=== PATIENT | female | born 1990 | race Caucasian/White ===

== ENCOUNTER → 2017-12-31 | Outpatient (CLI) | payer MEDICAID | LOC: HPND 11:13 | PROVIDERS: ATTEND Obstetrics & Gynecology | DX: O28.3 Abnormal ultrasonic finding on antenatal screening of mother (principal); O99.331 Smoking (tobacco) complicating pregnancy, first trimester | CPT/HCPCS: 76813 ==

== ENCOUNTER → 2018-01-28 | Outpatient (CLI) | payer MEDICAID | LOC: HPND 08:30 | PROVIDERS: ATTEND Obstetrics & Gynecology | DX: O28.3 Abnormal ultrasonic finding on antenatal screening of mother (principal); O09.292 Supervision of pregnancy with other poor reproductive or obstetric history, second trimester | CPT/HCPCS: 76811 ==

== ENCOUNTER → 2018-02-25 | Outpatient (CLI) | payer MEDICAID | LOC: HPND 12:55 | PROVIDERS: ATTEND Obstetrics & Gynecology | DX: O28.3 Abnormal ultrasonic finding on antenatal screening of mother (principal); O99.332 Smoking (tobacco) complicating pregnancy, second trimester; O09.292 Supervision of pregnancy with other poor reproductive or obstetric history, second trimester | CPT/HCPCS: 76816; 76825; 76827; 93325 ==

== ENCOUNTER 2018-06-23 07:43 | Inpatient (IN) ==
--- NOTE | 2018-06-23 08:32 | ED ---
History of Present Illness Primary Care Physician: No Primary Care Physician [facility] History of Present Illness: at [id number] presents complaining of cxns every 6 minutes waking her up from sleep, and now cxns/pressure every minute. She denies any LOF, VB. +FM Ob history this : current smoker - 1/2 ppd elevated GCT, normal GTT obhx: x 2 - most recent 2009 - biggest baby 6lb4 - 1st baby went to NICU for SGA, RDS medhx: none surghx: none meds: PNV all: none Review of Systems All other systems reviewed negative except as stated in HPI PMFSH - History History Provided By: Patient - Tobacco History Second Hand Smoke Exposure: No Smoking Status: Never smoker - Travel History Recent Travel in the [place] Within the Last 8 Weeks: No Recent Travel Out of the Country Within the Last 8 Weeks: No Medications and Allergies Allergies Allergy/AdvReac Type Severity Reaction Status Date / Time latex AdvReac Rash, Verified 06/23/18 08:05 Localized Home Medications Medication Instructions Recorded Confirmed Type PNV cmb#95-ferrous fumarate-FA 1 tab PO DAILY 06/23/18 06/23/18 History [] Exam Vital signs: Vital Signs 06/23/18 07:56 06/23/18 08:10 Temperature 97.7 F Pulse Rate 64 Respiratory Rate 20 Blood Pressure 117/72 Intake & Output 06/22/18 06/23/18 06/23/18 18:59 06:59 18:59 Weight 73.028 kg Narrative: GENERAL: Well-nourished, well-developed patient. SKIN: Warm and dry. HEAD: Normocephalic and atraumatic. EYES: No scleral icterus. No injection or drainage. ENT: No nasal drainage noted. Mucous membranes pink. Airway patent. NECK: Supple, trachea midline. No JVD. CARDIOVASCULAR: Regular rate and rhythm without murmurs, gallops, or rubs. RESPIRATORY: Breath sounds equal bilaterally. No accessory muscle use. ABDOMEN/GI: Abdomen soft, non-tender, bowel sounds present, no rebound, no guarding Gravid to 39 weeks size Fundal Height: 39 SVE: 3/60/-2, posterior GENITOURINARY: External Genitalia: intact and normal in appearance FHT's: Cat 1 tracing, no decels, +accels no cxns on toco EXTREMITIES: No cyanosis or edema. BACK: Nontender without obvious deformity. No CVA tenderness. NEUROLOGICAL: Awake and alert. Motor and sensory grossly within normal limits. Five out of 5 muscle strength in all muscle groups. Normal speech. Assessment and Plan - Diagnosis (1) 38 weeks gestation of Code(s): Z3A.38 - 38 weeks gestation of Status: Acute Plan: at [id number] presents complaining of cxns. - Pt made cervical change from 3/60/-2, posterior --> 4/70/-2, midposition - Pt in labor pain, irregular cxns monitor - Admit for early labor - labs reviewed - GBS negative - f/u admission labs Discharge Plan - Discharge Disposition Patient Disposition: 30 Still Patient - Physicians Team ED Provider: Abe Newby Primary Care Provider: Primary Care Pamela Jordan - Rxs /Orders / Referrals /Forms Prescriptions: No Action PNV cmb#95-ferrous fumarate-FA [] 28 mg iron- 800 mcg Tablet 1 tab PO DAILY - Discharge Instructions Print Language: Palauan
[2018-06-23] MEDS ORDERED: fentaNYL Citrate Inj 100 MCG/2 ML Ampul IV.PUSH PRN ×2 (09:22)
[2018-06-23] MEDS ORDERED: Naloxone Inj 0.4 MG/ML Vial IV.PUSH PRN (09:22)
[2018-06-23] MEDS ORDERED: Sodium Chlor 0.9% Inj 500 ML IV.SIG PRN (09:22)
[2018-06-23] MEDS ORDERED: Sod Chloride 0.9% Inj 1,000 ML IV.CONT PRN (09:22)
[2018-06-23] MEDS ORDERED: Oxytocin 30 Units/500ml Premix 30 UNITS/500 ML BAG IV.SIG ONE (09:22)
[2018-06-23] MEDS ORDERED: Citric Acid/Sodium Citrate Liq 30 ML UDC PO SCH (09:30)
[2018-06-23] MEDS ORDERED: Sodium Chloride 0.9% 2 ML Flush PRN IV.FLUSH (09:44)
[2018-06-23 10:23] LABS: Baso % (Auto) 0.3 % (0.0-2.0); Eos # (Auto) 0.1 th/mm3 (0.0-0.4); Eos % (Auto) 1.1 % (0.0-4.0); Hemoglobin 13.1 gm/dL (11.6-15.3); Lymph % (Auto) 26.7 % (9.0-44.0); Mean Corpuscular HGB Conc 35.4 % (32.0-36.0); Mean Corpuscular Hemoglobin 32.3 pg (27.0-34.0); Mean Corpuscular Volume 91.2 fL (80.0-100.0); Mean Platelet Volume 8.9 fL (7.0-11.0); Mono # (Auto) 0.6 th/mm3 (0.0-0.9); Mono % (Auto) 5.7 % (0.0-8.0); Neut # (Auto) 7.3 th/mm3 (1.8-7.7); Neut % (Auto) 66.2 % (16.0-70.0); Platelet Count 192 th/mm3 (150-450); Red Blood Count 4.06 mil/mm3 (4.00-5.30); Red Cell Distribution Width 13.7 % (11.6-17.2); White Blood Count 11.1 th/mm3 (4.0-11.0)
--- NOTE | 2018-06-23 10:24 | P.OBGPN ---
History of Present Illness Primary Care Physician: No Primary Care Physician [facility] History of Present Illness: at [id number] presents complaining of cxns every 6 minutes waking her up from sleep, and now cxns/pressure every minute. She denies any LOF, VB. +FM Ob history this : current smoker - 1/2 ppd elevated GCT, normal GTT obhx: x 2 - most recent 2009 - biggest baby 6lb4 - 1st baby went to NICU for SGA, RDS medhx: none surghx: none meds: PNV all: none Review of Systems All other systems reviewed negative except as stated in HPI PMFSH - History History Provided By: Patient - Tobacco History Second Hand Smoke Exposure: No Smoking Status: Never smoker - Travel History Recent Travel in the [place] Within the Last 8 Weeks: No Recent Travel Out of the Country Within the Last 8 Weeks: No Medications and Allergies Allergies Allergy/AdvReac Type Severity Reaction Status Date / Time latex AdvReac Rash, Verified 06/23/18 08:05 Localized Home Medications Medication Instructions Recorded Confirmed Type PNV cmb#95-ferrous fumarate-FA 1 tab PO DAILY 06/23/18 06/23/18 History [] Exam Vital signs: Vital Signs 06/23/18 07:56 06/23/18 08:10 Temperature 97.7 F Pulse Rate 64 Respiratory Rate 20 Blood Pressure 117/72 Intake & Output 06/22/18 06/23/18 06/23/18 18:59 06:59 18:59 Weight 73.028 kg Narrative: GENERAL: Well-nourished, well-developed patient. SKIN: Warm and dry. HEAD: Normocephalic and atraumatic. EYES: No scleral icterus. No injection or drainage. ENT: No nasal drainage noted. Mucous membranes pink. Airway patent. NECK: Supple, trachea midline. No JVD. CARDIOVASCULAR: Regular rate and rhythm without murmurs, gallops, or rubs. RESPIRATORY: Breath sounds equal bilaterally. No accessory muscle use. ABDOMEN/GI: Abdomen soft, non-tender, bowel sounds present, no rebound, no guarding Gravid to 39 weeks size Fundal Height: 39 SVE: 3/60/-2, posterior GENITOURINARY: External Genitalia: intact and normal in appearance FHT's: Cat 1 tracing, no decels, +accels no cxns on toco EXTREMITIES: No cyanosis or edema. BACK: Nontender without obvious deformity. No CVA tenderness. NEUROLOGICAL: Awake and alert. Motor and sensory grossly within normal limits. Five out of 5 muscle strength in all muscle groups. Normal speech. Assessment and Plan - Diagnosis (1) 38 weeks gestation of Code(s): Z3A.38 - 38 weeks gestation of Status: Acute Plan: at [id number] presents complaining of cxns. - Pt made cervical change from 3/60/-2, posterior --> 4/70/-2, midposition - Pt in labor pain, irregular cxns monitor - Admit for early labor - labs reviewed - GBS negative - f/u admission labs
[2018-06-23 10:31] LABS: Bacteria,Urine Rare /hpf; Bilirubin,Urine Negative (Negative); Clarity,Urine Hazy (Clear); Color,Urine Yellow (Yellw/Straw); Glucose,Urine (UA) Negative (Negative); Leukocyte Esterase,Urine Negative (Negative); Mucus,Urine Few /lpf (Occasional); Nitrite,Urine Negative (Negative); Specific Gravity,Urine 1.021 (1.002-1.035); Squamous Epithelial Cell,Urine 4 /hpf (0-5)
[2018-06-23 10:37] LABS: Amphetamine Urine With Conf Neg (Neg); Benzodiazepine Urine With Conf Neg (Neg)
--- NOTE | 2018-06-23 11:07 | P.PN ---
Subjective Interval history: The patient is a 28 year-old who presented at 38.4 in early labor with documented cervical change. We discussed the goal of a healthy and mother and goal of a . The patient agrees to a C/S if medically indicated. All of the patients questions were answered, FHR reassuring. Will manage expectantly for now, augment if needed. Physical Exam Vital signs: Vital Signs 06/23/18 07:56 06/23/18 08:10 06/23/18 08:15 Temperature 97.7 F Pulse Rate 64 69 Respiratory Rate 20 Blood Pressure 117/72 06/23/18 10:10 Temperature Pulse Rate 82 Respiratory Rate Blood Pressure 119/73 Intake & Output 06/22/18 06/23/18 06/23/18 18:59 06:59 18:59 Weight 73.028 kg Results - Labs CBC & Chem 7: 06/23/18 09:40 Laboratory Results - last 24 hr 06/23/18 06/23/18 06/23/18 09:30 09:30 09:30 WBC RBC Hgb Hct MCV MCH MCHC RDW Plt Count MPV Neut % (Auto) Lymph % (Auto) [place] % (Auto) Eos % (Auto) Baso % (Auto) Neut # (Auto) Lymph # (Auto) [place] # (Auto) Eos # (Auto) Baso # (Auto) WBC Differential Differential Comment Urine Color Yellow Urine Clarity Hazy H Urine pH 6.0 Ur Specific [place] 1.021 Urine Protein Negative Urine Glucose (UA) Negative Urine Ketones Negative Urine Occult Blood Negative Urine Nitrate Negative Urine Bilirubin Negative Urine Urobilinogen Less than 2 Ur Leukocyte Esterase Negative Urine RBC Less than 1 Urine WBC 2 Ur Squamous Epith Cells 4 Urine Bacteria Rare H Urine Mucus Few H Micro UA Comment Culture not ind Ur Microscopic Review Not Reportable Urine Culture Comments Culture not ind Urine Opiates Screen Cancelled Neg Ur Barbiturates Screen Cancelled Neg Ur Amphetamine Screen Neg Ur Amphetamines Screen Cancelled U Benzodiazepines Scrn Cancelled Neg Urine Cocaine Screen Cancelled Neg U Cannabinoids Screen Cancelled Neg Blood Type Blood Type Recheck 06/23/18 06/23/18 09:40 09:40 WBC 11.1 H RBC 4.06 Hgb 13.1 Hct 37.0 MCV 91.2 MCH 32.3 MCHC 35.4 RDW 13.7 Plt Count 192 MPV 8.9 Neut % (Auto) 66.2 Lymph % (Auto) 26.7 Williams % (Auto) 5.7 Eos % (Auto) 1.1 Baso % (Auto) 0.3 Neut # (Auto) 7.3 Lymph # (Auto) 3.0 [place] # (Auto) 0.6 Eos # (Auto) 0.1 Baso # (Auto) 0.0 WBC Differential . Differential Comment Auto diff final Urine Color Urine Clarity Urine pH Ur Specific [place] Urine Protein Urine Glucose (UA) Urine Ketones Urine Occult Blood Urine Nitrate Urine Bilirubin Urine Urobilinogen Ur Leukocyte Esterase Urine RBC Urine WBC Ur Squamous Epith Cells Urine Bacteria Urine Mucus Micro UA Comment Ur Microscopic Review Urine Culture Comments Urine Opiates Screen Ur Barbiturates Screen Ur Amphetamine Screen Ur Amphetamines Screen U Benzodiazepines Scrn Urine Cocaine Screen U Cannabinoids Screen Blood Type O Positive Blood Type Recheck Required
[2018-06-23] MEDS ORDERED: Oxytocin 30 Units/500ml Premix 30 UNITS/500 ML BAG IV.SIG PRN (16:42)
[2018-06-23] MEDS: Sodium Chloride 0.9% 2 ML Flush BID IV.FLUSH SCH (20:21)
[2018-06-23] MEDS ORDERED: fentaNYL 2MCG-Bupiv 0.125% Epi 150 ML EPIDURAL ONE (20:35)
[2018-06-23] MEDS ORDERED: Lidocaine 2%/Epinephrine 1:200,000 PF Inj 20 ML Vial ONE (20:41)
[2018-06-23] MEDS ORDERED: fentaNYL Citrate Inj 100 MCG/2 ML Ampul EPIDURAL ONE (21:35)
[2018-06-23] MEDS ORDERED: fentaNYL 2MCG-Bupiv 0.125% Epi 150 ML EPIDURAL PRN (22:00)
--- NOTE | 2018-06-23 23:18 | P.PN ---
Subjective Interval history: OBHG Asked by RN to place IUPC and ROM of forebag. Patient previously SROM during attending examination. Attempted earlier, but fetus intolerant of prolonged positioning on back and low maternal BP, so ephedra given, oxygen administered, and oxytocin discontinued. Currently with reassuring heart tones. AROM of forebag with clear fluid, consented for placement of IUPC and FSE. IUPC and FSE placed without difficulty and patient tolerated well. Will restart oxytocin augmentation. Physical Exam Vital signs: Vital Signs 06/23/18 07:56 06/23/18 08:10 06/23/18 08:15 Temperature 97.7 F Pulse Rate 64 69 Respiratory Rate 20 Blood Pressure 117/72 06/23/18 10:10 06/23/18 16:18 06/23/18 16:19 Temperature 97.8 F Pulse Rate 82 63 Respiratory Rate 17 Blood Pressure 119/73 113/69 06/23/18 17:38 06/23/18 18:00 06/23/18 18:30 Temperature Pulse Rate 69 75 77 Respiratory Rate Blood Pressure 113/65 108/71 108/53 L 06/23/18 18:45 06/23/18 19:10 06/23/18 19:30 Temperature 97.9 F Pulse Rate 81 93 H Respiratory Rate 9 L Blood Pressure 104/92 H 108/71 06/23/18 20:32 06/23/18 20:45 06/23/18 20:50 Temperature 98.0 F Pulse Rate 75 56 L 68 Respiratory Rate 16 Blood Pressure 114/65 118/80 116/63 06/23/18 20:55 06/23/18 21:00 06/23/18 21:05 Temperature Pulse Rate 65 73 72 Respiratory Rate Blood Pressure 107/60 106/59 L 103/64 06/23/18 21:20 06/23/18 21:25 06/23/18 21:30 Temperature Pulse Rate 84 66 66 Respiratory Rate Blood Pressure 107/77 06/23/18 21:35 06/23/18 21:40 06/23/18 21:45 Temperature Pulse Rate 65 62 60 Respiratory Rate Blood Pressure 88/43 L 81/43 L 101/57 L 06/23/18 21:55 06/23/18 22:00 06/23/18 22:10 Temperature Pulse Rate 65 68 69 Respiratory Rate Blood Pressure 93/40 L 06/23/18 22:15 06/23/18 22:19 06/23/18 22:20 Temperature 97.6 F Pulse Rate 68 60 Respiratory Rate 18 Blood Pressure 87/49 L 06/23/18 22:25 06/23/18 22:30 06/23/18 22:32 Temperature Pulse Rate 55 L 56 L 50 L Respiratory Rate Blood Pressure 98/44 L 98/55 L 06/23/18 22:35 06/23/18 22:36 06/23/18 22:40 Temperature Pulse Rate 54 L 53 L 60 Respiratory Rate Blood Pressure 104/57 L 06/23/18 22:45 06/23/18 22:50 06/23/18 22:55 Temperature Pulse Rate 69 56 L 58 L Respiratory Rate Blood Pressure 105/56 L 06/23/18 23:00 06/23/18 23:05 06/23/18 23:10 Temperature Pulse Rate 57 L 66 65 Respiratory Rate Blood Pressure 106/55 L Intake & Output 06/23/18 06/23/18 06/24/18 06:59 18:59 06:59 Intake Total 1000 / 1000 Balance 1000 / 1000 Weight 73.457 kg Intake: IV 1000 / 1000 LR 1000 mL Inj 1,000 ML @ 125 1000 / 1000 mls/hr IV.CONT .Q8H [facility] Rx#: [id number] Results - Labs CBC & Chem 7: 06/23/18 09:40 Laboratory Results - last 24 hr 06/23/18 06/23/18 06/23/18 09:30 09:30 09:30 WBC RBC Hgb Hct MCV MCH MCHC RDW Plt Count MPV Neut % (Auto) Lymph % (Auto) [place] % (Auto) Eos % (Auto) Baso % (Auto) Neut # (Auto) Lymph # (Auto) [place] # (Auto) Eos # (Auto) Baso # (Auto) WBC Differential Differential Comment Urine Color Yellow Urine Clarity Hazy H Urine pH 6.0 Ur Specific [place] 1.021 Urine Protein Negative Urine Glucose (UA) Negative Urine Ketones Negative Urine Occult Blood Negative Urine Nitrate Negative Urine Bilirubin Negative Urine Urobilinogen Less than 2 Ur Leukocyte Esterase Negative Urine RBC Less than 1 Urine WBC 2 Ur Squamous Epith Cells 4 Urine Bacteria Rare H Urine Mucus Few H Micro UA Comment Culture not ind Ur Microscopic Review Not Reportable Urine Culture Comments Culture not ind Urine Opiates Screen Cancelled Neg Ur Barbiturates Screen Cancelled Neg Ur Amphetamine Screen Neg Ur Amphetamines Screen Cancelled U Benzodiazepines Scrn Cancelled Neg Urine Cocaine Screen Cancelled Neg U Cannabinoids Screen Cancelled Neg Blood Type Blood Type Recheck 06/23/18 06/23/18 09:40 09:40 WBC 11.1 H RBC 4.06 Hgb 13.1 Hct 37.0 MCV 91.2 MCH 32.3 MCHC 35.4 RDW 13.7 Plt Count 192 MPV 8.9 Neut % (Auto) 66.2 Lymph % (Auto) 26.7 [place] % (Auto) 5.7 Eos % (Auto) 1.1 Baso % (Auto) 0.3 Neut # (Auto) 7.3 Lymph # (Auto) 3.0 [place] # (Auto) 0.6 Eos # (Auto) 0.1 Baso # (Auto) 0.0 WBC Differential . Differential Comment Auto diff final Urine Color Urine Clarity Urine pH Ur Specific [place] Urine Protein Urine Glucose (UA) Urine Ketones Urine Occult Blood Urine Nitrate Urine Bilirubin Urine Urobilinogen Ur Leukocyte Esterase Urine RBC Urine WBC Ur Squamous Epith Cells Urine Bacteria Urine Mucus Micro UA Comment Ur Microscopic Review Urine Culture Comments Urine Opiates Screen Ur Barbiturates Screen Ur Amphetamine Screen Ur Amphetamines Screen U Benzodiazepines Scrn Urine Cocaine Screen U Cannabinoids Screen Blood Type O Positive Blood Type Recheck Required
--- NOTE | 2018-06-24 03:31 | P.OBLABOR ---
Subjective Interval history: Patient resting comfortably at the time of examination. Objective Vital Signs: Vital Signs - 8 hr 06/23/18 19:30 06/23/18 20:32 06/23/18 20:45 Temperature 98.0 F Pulse Rate 93 H 75 56 L Respiratory Rate 16 Blood Pressure 108/71 114/65 118/80 06/23/18 20:50 06/23/18 20:55 06/23/18 21:00 Temperature Pulse Rate 68 65 73 Respiratory Rate Blood Pressure 116/63 107/60 106/59 L 06/23/18 21:05 06/23/18 21:20 06/23/18 21:25 Temperature Pulse Rate 72 84 66 Respiratory Rate Blood Pressure 103/64 107/77 06/23/18 21:30 06/23/18 21:35 06/23/18 21:40 Temperature Pulse Rate 66 65 62 Respiratory Rate Blood Pressure 88/43 L 81/43 L 06/23/18 21:45 06/23/18 21:55 06/23/18 22:00 Temperature Pulse Rate 60 65 68 Respiratory Rate Blood Pressure 101/57 L 06/23/18 22:10 06/23/18 22:15 06/23/18 22:19 Temperature 97.6 F Pulse Rate 69 68 Respiratory Rate 18 Blood Pressure 93/40 L 87/49 L 06/23/18 22:20 06/23/18 22:25 06/23/18 22:30 Temperature Pulse Rate 60 55 L 56 L Respiratory Rate Blood Pressure 98/44 L 06/23/18 22:32 06/23/18 22:35 06/23/18 22:36 Temperature Pulse Rate 50 L 54 L 53 L Respiratory Rate Blood Pressure 98/55 L 104/57 L 06/23/18 22:40 06/23/18 22:45 06/23/18 22:50 Temperature Pulse Rate 60 69 56 L Respiratory Rate Blood Pressure 105/56 L 06/23/18 22:55 06/23/18 23:00 06/23/18 23:05 Temperature Pulse Rate 58 L 57 L 66 Respiratory Rate Blood Pressure 106/55 L 06/23/18 23:10 06/23/18 23:15 06/23/18 23:20 Temperature Pulse Rate 65 55 L 68 Respiratory Rate Blood Pressure 97/56 L 06/23/18 23:25 06/23/18 23:30 06/23/18 23:35 Temperature Pulse Rate 83 60 64 Respiratory Rate Blood Pressure 108/51 L 06/23/18 23:40 06/23/18 23:55 06/24/18 00:00 Temperature Pulse Rate 83 69 58 L Respiratory Rate Blood Pressure 101/54 L 97/58 L 06/24/18 00:05 06/24/18 00:10 06/24/18 00:15 Temperature Pulse Rate 66 58 L 76 Respiratory Rate Blood Pressure 100/51 L 06/24/18 00:25 06/24/18 00:30 06/24/18 00:38 Temperature 97.8 F Pulse Rate 83 79 Respiratory Rate 18 Blood Pressure 06/24/18 00:40 06/24/18 00:45 06/24/18 00:50 Temperature Pulse Rate 60 65 70 Respiratory Rate Blood Pressure 94/50 L 06/24/18 00:55 06/24/18 01:05 06/24/18 01:10 Temperature Pulse Rate 71 66 69 Respiratory Rate Blood Pressure 98/48 L 06/24/18 01:20 06/24/18 01:25 06/24/18 01:26 Temperature Pulse Rate 76 76 55 L Respiratory Rate Blood Pressure 89/35 L 105/63 06/24/18 01:40 06/24/18 01:45 06/24/18 01:50 Temperature Pulse Rate 57 L 58 L 61 Respiratory Rate Blood Pressure 109/62 107/55 L 06/24/18 01:55 06/24/18 02:00 06/24/18 02:05 Temperature Pulse Rate 62 72 80 Respiratory Rate Blood Pressure 105/65 06/24/18 02:08 06/24/18 02:10 06/24/18 02:15 Temperature 97.7 F Pulse Rate 68 62 Respiratory Rate 18 Blood Pressure 108/58 L 06/24/18 02:20 06/24/18 02:25 06/24/18 02:30 Temperature Pulse Rate 84 73 68 Respiratory Rate Blood Pressure 100/63 06/24/18 02:35 06/24/18 02:40 06/24/18 02:45 Temperature Pulse Rate 62 82 73 Respiratory Rate Blood Pressure 102/58 L 06/24/18 02:55 06/24/18 03:10 Temperature Pulse Rate 90 62 Respiratory Rate Blood Pressure 104/62 100/53 L Objective: Pelvic Exam: Cervix: midline Dilatation: 6-7 Effacement: 80 Station: -1 Presentation: vertex Membranes: ruptured Uterine Contractions: Q3-4min FHT's: Category: 1 Baseline: 120s Reactive: yes Variability: moderate Decels: none Weeks Gestation: 38 Artificial Rupture of Membrane: No Assessment and Plan - Diagnosis (1) 38 weeks gestation of Code(s): Z3A.38 - 38 weeks gestation of Status: Acute - Plan at [id number] in active labor. Pitocin currently at 30. Cervical exam 6-/-1. FHT Category 1 with baseline in 120s. - Continue current plan. - Will recheck patient in 3 hours
--- NOTE | 2018-06-24 06:30 | P.PN ---
Subjective Interval history: [facility] Delivery Note The patient progressed to complete/complete/0 station. Patient commence spontaneous maternal expulsive efforts with overall reassuring heart tones. The fetus descended through the vagina and the head delivered atraumatically and spontaneously followed by atraumatic and spontaneous delivery of the anterior shoulder and remainder the was vigorous at delivery and placed on maternal abdomen. The umbilical cord was cut after a delay of greater than 45 seconds and cord blood obtained for the nursery. The placenta delivered spontaneously and appeared to be intact. No lacerations were noted. Apgars 8/9. The mother and are both doing well. Physical Exam Vital signs: Vital Signs 06/23/18 07:56 06/23/18 08:10 06/23/18 08:15 Temperature 97.7 F Pulse Rate 64 69 Respiratory Rate 20 Blood Pressure 117/72 06/23/18 10:10 06/23/18 16:18 06/23/18 16:19 Temperature 97.8 F Pulse Rate 82 63 Respiratory Rate 17 Blood Pressure 119/73 113/69 06/23/18 17:38 06/23/18 18:00 06/23/18 18:30 Temperature Pulse Rate 69 75 77 Respiratory Rate Blood Pressure 113/65 108/71 108/53 L 06/23/18 18:45 06/23/18 19:10 06/23/18 19:30 Temperature 97.9 F Pulse Rate 81 93 H Respiratory Rate 9 L Blood Pressure 104/92 H 108/71 06/23/18 20:32 06/23/18 20:45 06/23/18 20:50 Temperature 98.0 F Pulse Rate 75 56 L 68 Respiratory Rate 16 Blood Pressure 114/65 118/80 116/63 06/23/18 20:55 06/23/18 21:00 06/23/18 21:05 Temperature Pulse Rate 65 73 72 Respiratory Rate Blood Pressure 107/60 106/59 L 103/64 06/23/18 21:20 06/23/18 21:25 06/23/18 21:30 Temperature Pulse Rate 84 66 66 Respiratory Rate Blood Pressure 107/77 06/23/18 21:35 06/23/18 21:40 06/23/18 21:45 Temperature Pulse Rate 65 62 60 Respiratory Rate Blood Pressure 88/43 L 81/43 L 101/57 L 06/23/18 21:55 06/23/18 22:00 06/23/18 22:10 Temperature Pulse Rate 65 68 69 Respiratory Rate Blood Pressure 93/40 L 06/23/18 22:15 06/23/18 22:19 06/23/18 22:20 Temperature 97.6 F Pulse Rate 68 60 Respiratory Rate 18 Blood Pressure 87/49 L 06/23/18 22:25 06/23/18 22:30 06/23/18 22:32 Temperature Pulse Rate 55 L 56 L 50 L Respiratory Rate Blood Pressure 98/44 L 98/55 L 06/23/18 22:35 06/23/18 22:36 06/23/18 22:40 Temperature Pulse Rate 54 L 53 L 60 Respiratory Rate Blood Pressure 104/57 L 06/23/18 22:45 06/23/18 22:50 06/23/18 22:55 Temperature Pulse Rate 69 56 L 58 L Respiratory Rate Blood Pressure 105/56 L 06/23/18 23:00 06/23/18 23:05 06/23/18 23:10 Temperature Pulse Rate 57 L 66 65 Respiratory Rate Blood Pressure 106/55 L 06/23/18 23:15 06/23/18 23:20 06/23/18 23:25 Temperature Pulse Rate 55 L 68 83 Respiratory Rate Blood Pressure 97/56 L 06/23/18 23:30 06/23/18 23:35 06/23/18 23:40 Temperature Pulse Rate 60 64 83 Respiratory Rate Blood Pressure 108/51 L 101/54 L 06/23/18 23:55 06/24/18 00:00 06/24/18 00:05 Temperature Pulse Rate 69 58 L 66 Respiratory Rate Blood Pressure 97/58 L 06/24/18 00:10 06/24/18 00:15 06/24/18 00:25 Temperature Pulse Rate 58 L 76 83 Respiratory Rate Blood Pressure 100/51 L 06/24/18 00:30 06/24/18 00:38 06/24/18 00:40 Temperature 97.8 F Pulse Rate 79 60 Respiratory Rate 18 Blood Pressure 06/24/18 00:45 06/24/18 00:50 06/24/18 00:55 Temperature Pulse Rate 65 70 71 Respiratory Rate Blood Pressure 94/50 L 98/48 L 06/24/18 01:05 06/24/18 01:10 06/24/18 01:20 Temperature Pulse Rate 66 69 76 Respiratory Rate Blood Pressure 89/35 L 06/24/18 01:25 06/24/18 01:26 06/24/18 01:40 Temperature Pulse Rate 76 55 L 57 L Respiratory Rate Blood Pressure 105/63 109/62 06/24/18 01:45 06/24/18 01:50 06/24/18 01:55 Temperature Pulse Rate 58 L 61 62 Respiratory Rate Blood Pressure 107/55 L 06/24/18 02:00 06/24/18 02:05 06/24/18 02:08 Temperature 97.7 F Pulse Rate 72 80 Respiratory Rate 18 Blood Pressure 105/65 06/24/18 02:10 06/24/18 02:15 06/24/18 02:20 Temperature Pulse Rate 68 62 84 Respiratory Rate Blood Pressure 108/58 L 06/24/18 02:25 06/24/18 02:30 06/24/18 02:35 Temperature Pulse Rate 73 68 62 Respiratory Rate Blood Pressure 100/63 06/24/18 02:40 06/24/18 02:45 06/24/18 02:55 Temperature Pulse Rate 82 73 90 Respiratory Rate Blood Pressure 102/58 L 104/62 06/24/18 03:10 06/24/18 03:25 06/24/18 03:35 Temperature Pulse Rate 62 69 76 Respiratory Rate Blood Pressure 100/53 L 99/58 L 06/24/18 03:40 06/24/18 03:45 06/24/18 03:50 Temperature Pulse Rate 75 81 70 Respiratory Rate Blood Pressure 97/50 L 06/24/18 03:55 06/24/18 04:00 06/24/18 04:10 Temperature Pulse Rate 78 71 75 Respiratory Rate Blood Pressure 101/46 L 06/24/18 04:15 06/24/18 04:19 06/24/18 04:20 Temperature 97.8 F Pulse Rate 81 77 Respiratory Rate 16 Blood Pressure 98/52 L 06/24/18 04:25 06/24/18 04:35 06/24/18 04:40 Temperature Pulse Rate 91 H 75 77 Respiratory Rate Blood Pressure 99/62 L 06/24/18 04:45 06/24/18 04:50 06/24/18 04:55 Temperature Pulse Rate 78 77 74 Respiratory Rate Blood Pressure 102/65 06/24/18 05:00 06/24/18 05:05 06/24/18 05:10 Temperature Pulse Rate 73 69 74 Respiratory Rate Blood Pressure 100/57 L 06/24/18 05:15 06/24/18 05:16 06/24/18 05:20 Temperature Pulse Rate 82 86 87 Respiratory Rate Blood Pressure 105/55 L 06/24/18 05:35 06/24/18 05:40 06/24/18 05:45 Temperature Pulse Rate 87 91 H 93 H Respiratory Rate Blood Pressure 105/59 L 108/62 06/24/18 06:00 06/24/18 06:05 06/24/18 06:10 Temperature Pulse Rate 80 77 95 H Respiratory Rate Blood Pressure Intake & Output 06/23/18 06/23/18 06/24/18 06:59 18:59 06:59 Intake Total 3000 / 3000 Balance 3000 / 3000 Weight 73.457 kg Intake: IV 3000 / 3000 LR 1000 mL Inj 1,000 ML @ 125 3000 / 3000 mls/hr IV.CONT .Q8H [facility] Rx#: [id number] Results - Labs CBC & Chem 7: 06/23/18 09:40 Laboratory Results - last 24 hr 06/23/18 06/23/18 06/23/18 09:30 09:30 09:30 WBC RBC Hgb Hct MCV MCH MCHC RDW Plt Count MPV Neut % (Auto) Lymph % (Auto) [place] % (Auto) Eos % (Auto) Baso % (Auto) Neut # (Auto) Lymph # (Auto) [place] # (Auto) Eos # (Auto) Baso # (Auto) WBC Differential Differential Comment Urine Color Yellow Urine Clarity Hazy H Urine pH 6.0 Ur Specific [place] 1.021 Urine Protein Negative Urine Glucose (UA) Negative Urine Ketones Negative Urine Occult Blood Negative Urine Nitrate Negative Urine Bilirubin Negative Urine Urobilinogen Less than 2 Ur Leukocyte Esterase Negative Urine RBC Less than 1 Urine WBC 2 Ur Squamous Epith Cells 4 Urine Bacteria Rare H Urine Mucus Few H Micro UA Comment Culture not ind Ur Microscopic Review Not Reportable Urine Culture Comments Culture not ind Urine Opiates Screen Cancelled Neg Ur Barbiturates Screen Cancelled Neg Ur Amphetamine Screen Neg Ur Amphetamines Screen Cancelled U Benzodiazepines Scrn Cancelled Neg Urine Cocaine Screen Cancelled Neg U Cannabinoids Screen Cancelled Neg Blood Type Blood Type Recheck 06/23/18 06/23/18 09:40 09:40 WBC 11.1 H RBC 4.06 Hgb 13.1 Hct 37.0 MCV 91.2 MCH 32.3 MCHC 35.4 RDW 13.7 Plt Count 192 MPV 8.9 Neut % (Auto) 66.2 Lymph % (Auto) 26.7 [place] % (Auto) 5.7 Eos % (Auto) 1.1 Baso % (Auto) 0.3 Neut # (Auto) 7.3 Lymph # (Auto) 3.0 [place] # (Auto) 0.6 Eos # (Auto) 0.1 Baso # (Auto) 0.0 WBC Differential . Differential Comment Auto diff final Urine Color Urine Clarity Urine pH Ur Specific [place]onson Urine Protein Urine Glucose (UA) Urine Ketones Urine Occult Blood Urine Nitrate Urine Bilirubin Urine Urobilinogen Ur Leukocyte Esterase Urine RBC Urine WBC Ur Squamous Epith Cells Urine Bacteria Urine Mucus Micro UA Comment Ur Microscopic Review Urine Culture Comments Urine Opiates Screen Ur Barbiturates Screen Ur Amphetamine Screen Ur Amphetamines Screen U Benzodiazepines Scrn Urine Cocaine Screen U Cannabinoids Screen Blood Type O Positive Blood Type Recheck Required
--- NOTE | 2018-06-24 06:32 | P.OBDELI ---
Weeks Gestation: 38 Patient Started Active Labor: Yes Medical Induction of Labor: No Artificial Rupture of Membrane: No Anesthesia: Epidural Episiotomy: none Vaginal Delivery: Normal Presentation: Occiput anterior Nuchal Cord: None Delayed Cord Clamping (45 sec): Yes Placenta: Spontaneous delivery, Intact Laceration: None Estimated blood loss (mL): 150 : Male Infant Male A Infant Delivery Date: 06/24/18 Delivery Time: 06:18
[2018-06-24] MEDS ORDERED: Acetaminophen 325 MG Tablet PO PRN (09:48)
[2018-06-24] MEDS ORDERED: Bisacodyl 10 MG Supp RECTAL PRN (09:48)
[2018-06-24] MEDS ORDERED: Oxytocin 30 Units/500ml Premix 30 UNITS/500 ML BAG IV.CONT PRN (09:48)
[2018-06-24] MEDS ORDERED: Witch Hazel 50%/Glyderin 12.5% 40 Pad Jar RECTAL PRN (09:48)
[2018-06-24] MEDS ORDERED: Benzocaine 20% Top Spray 60 ML Can TOPICAL PRN (09:48)
[2018-06-24] MEDS ORDERED: Zolpidem Tartrate 5 MG Tablet PO PRN (09:48)
[2018-06-24] MEDS: Sodium Chloride 0.9% 2 ML Flush BID IV.FLUSH SCH ×2 (10:19→23:25)
[2018-06-24] MEDS ORDERED: Diphtheria/Tetanus/Pertussis Vaccine Inj 0.5 ML Syringe IM ONE (16:00)
[2018-06-24] MEDS ORDERED: Measles/Mumps/Rubella Vaccine Inj 0.5 ML Vial SQ ONE (16:00)
[2018-06-24] MEDS: Senna/Docusate Sodium 8.6/50 MG Tablet PO SCH (23:26)
--- NOTE | 2018-06-25 09:01 | P.PNOB ---
Subjective Post day: 1 Interval history: day #1 Afebrile with stable vitals overnight. Decreased lochia. Denies dysuria. No breast pain. Appetite good. No nausea or vomiting. Ambulating well. Denies calf pain or shortness of breath. Otherwise, she is doing well this morning and has no other complaints. Objective Vital Signs/I&O: Vital Signs 06/24/18 20:00 Temperature 98.3 F Pulse Rate 66 Respiratory Rate 18 Blood Pressure 106/67 Result Diagrams: 06/23/18 09:40 Objective Remarks: General: Alert, well appearing, in no acute distress Skin: Warm and dry HEENT: Atraumatic. Moist mucus membranes Cardiac: Regular rate and rhythm without murmur Pulmonary: No increased work of breathing. Clear to auscultation bilaterally with good air movement. Abdominal: Non-tender. uterus firm and below the umbilicus Extremities: 2+ pedal pulses, no edema, no calf tenderness Medications and IVs: Active Medications Acetaminophen (Tylenol) 650 mg PO Q4H PRN PRN Reason: PAIN SCALE 1 TO 2 Al Hydroxide/Mg Hydroxide (Milk Of Tigist Lilio) 30 ml PO Q12H PRN PRN Reason: Mild Constipation Benzocaine (Americaine 20% Top [place]) 1 spray TOPICAL Q4H PRN PRN Reason: For Perineum Discomfort Bisacodyl (Dulcolax Supp) 10 mg RECTAL DAILY PRN PRN Reason: SEVERE CONSITIPATION Oxytocin (Pitocin 30 Units/Ns 500 Ml Premix) 30 units in 500 mls @ 2 mls/hr IV.SIG TITRATE PRN; Protocol PRN Reason: For induction of labor Last Admin: 06/23/18 17:30 Dose: 2 milliunit/min, 2 mls/hr Fentanyl/Bupivacaine/Sodium Chlor (Fentanyl 2 Mcg-Bupiv 0.125% Epi) 150 mls @ 12 mls/hr EPIDURAL PRN PRN PRN Reason: for Labor Pain Last Admin: 06/23/18 21:44 Dose: 12 mls/hr Oxytocin (Pitocin 30 Units/Ns 500 Ml Premix) 30 units in 500 mls @ 100 mls/hr IV.CONT UNSCH PRN PRN Reason: Heavy bleeding Ibuprofen (Motrin) 800 mg PO Q8H PRN PRN Reason: For Cramping Last Admin: 06/24/18 23:42 Dose: 800 mg Lactulose (Lactulose Liq) 30 ml PO DAILY PRN PRN Reason: SEVERE CONSITIPATION Ondansetron HCl (Zofran Odt) 4 mg PO Q6H PRN PRN Reason: NAUSEA OR VOMITING Senna/Docusate Sodium (Lorena-Colace) 1 tab PO BID [facility] Last Admin: 06/24/18 23:26 Dose: Not Given Sennosides (Senokot) 17.2 mg PO Q12H PRN PRN Reason: Moderate Constipation Sodium Chloride (Ns Flush) 2 ml IV.FLUSH BID FRANKIE Last Admin: 06/24/18 23:25 Dose: 2 ml Sodium Chloride (Ns Flush) 2 ml IV.FLUSH PRN PRN PRN Reason: FLUSH AFTER USING IV ACCESS Witch Janie/Glycerin (Tucks Pads) 1 applicatio RECTAL QID PRN PRN Reason: HEMORRHOIDS Zolpidem Tartrate (Ambien) 5 mg PO HS PRN PRN Reason: SLEEP Assessment and Plan - Diagnosis (1) 38 weeks gestation of Code(s): Z3A.38 - 38 weeks gestation of Status: Acute (2) Vaginal delivery Code(s): O80 - Encounter for full-term uncomplicated delivery Status: Acute - Plan 28 y/o female who is PPD# 1 s/p vaginal delivery -Continue routine care. -Motrin /APAP as needed for pain. -Encouraged OOB. Advised pelvic rest for 6 wks. - control: undecided. -Anticipate DC home tomorrow Care was discussed with: Dr. Newby
[2018-06-25 09:48] VITALS: BP 99/69; PULSE 56; RESP 20; TEMP 97.6
[2018-06-25] MEDS: Sodium Chloride 0.9% 2 ML Flush BID IV.FLUSH SCH (12:11)
[2018-06-25] MEDS: Senna/Docusate Sodium 8.6/50 MG Tablet PO SCH (12:11)
== END 2018-06-25 16:25 | disposition home or self-care (01) ==
LOC: HOBED 07:43 → H2E 09:20 → H1EA 06-24 08:12
PROVIDERS: ADMIT Obstetrics & Gynecology Maternal & Fetal Medicine; ATTEND Obstetrics & Gynecology Maternal & Fetal Medicine